=== PATIENT | female | born 1985 | race Caucasian/White ===

== ENCOUNTER 2018-03-13 11:18 | Outpatient (CLI) | payer OTHER ==
[2018-03-13] MEDS ORDERED: PRENATAL TABLE1 EAC1 PO (12:38)
== END 2018-03-13 16:00 | disposition home or self-care (01) ==
LOC: OBS/DEL 11:18
DX: O76 Abnormality in fetal heart rate and rhythm complicating labor and delivery (principal); O60.02 Preterm labor without delivery, second trimester; Z34.82 Encounter for supervision of other normal pregnancy, second trimester

== ENCOUNTER 2018-07-02 07:10 | Inpatient (IN) | payer OTHER ==
[~2018-07-02] VITALS: Ht 154.9 cm; Wt 165.0 kg
[~2018-07-02 07:10] MED LIST: PRENATAL TABLE1 EAC1 PO
[2018-07-04] MEDS ORDERED: SENOKOT-S TABL1 EACH PO (08:19)
[2018-07-04] MEDS ORDERED: PREPLUS CA-FE1 EACH PO (08:19)
[2018-07-04] MEDS ORDERED: IBUPROFEN400 MG PO (08:19)
== END 2018-07-04 13:20 | disposition home or self-care (01) | DRG 807 ==
LOC: OB/GYN 07:10 → LDR 07:10 → OB/GYN 09:20
PROC: 10E0XZZ Delivery of Products of Conception, External Approach (ICD-10-PCS; principal; 2018-07-02)
PROC: 0HQ9XZZ Repair Perineum Skin, External Approach (ICD-10-PCS; 2018-07-02)
PROC: 10907ZC Drainage of Amniotic Fluid, Therapeutic from Products of Conception, Via Natural or Artificial Opening (ICD-10-PCS; 2018-07-02)
PROC: 4A1HXCZ Monitoring of Products of Conception, Cardiac Rate, External Approach (ICD-10-PCS; 2018-07-02)
DX: O70.0 First degree perineal laceration during delivery (principal); Z37.0 Single live birth; Z3A.38 38 weeks gestation of pregnancy